=== PATIENT | female | born 1970 | race Caucasian/White ===

== ENCOUNTER → 2019-03-03 | Outpatient (CLI) | payer OTHER ==
[2019-03-05 14:07] LABS: HPV 16 Negative (Negative); HPV 18 Negative (Negative); HPV OTHER HR TYPES Positive (Negative)
== END | disposition home or self-care (01) ==
LOC: LAB SHORT 10:47 → LAB 10:47
PROVIDERS: Nurse Practitioner Women's Health
DX: Z12.4 Encounter for screening for malignant neoplasm of cervix (principal); Z91.89 Other specified personal risk factors, not elsewhere classified
CPT/HCPCS: 87624; 87625; G0123

== ENCOUNTER → 2021-02-16 | Outpatient (CLI) | payer BC ==
[2021-02-22 14:10] LABS: HPV 16 Negative (Negative); HPV 18 Negative (Negative); HPV OTHER HR TYPES Negative (Negative)
== END ==
LOC: LAB SHORT 16:03 → LAB 16:03
PROVIDERS: Obstetrics & Gynecology
DX: Z01.419 Encounter for gynecological examination (general) (routine) without abnormal findings (principal); Z88.1 Allergy status to other antibiotic agents; Z88.0 Allergy status to penicillin
CPT/HCPCS: 87624; G0123

== ENCOUNTER → 2025-05-26 | Outpatient (CLI) | payer OTHER | LOC: LAB SHORT 16:39 → LAB 16:39 | PROVIDERS: Advanced Practice Midwife | DX: Z01.419 Encounter for gynecological examination (general) (routine) without abnormal findings (principal) | CPT/HCPCS: 87624; G0145 ==